=== PATIENT | female | born 1945 | race Caucasian/White ===

== ENCOUNTER 2016-12-15 08:23 | Emergency (ER) | payer OTHER ==
[2016-12-15] MEDS ORDERED: Sodium Chloride 0.9% 1,000 ML IV ONE ×2 (09:01→10:22)
[2016-12-15] MEDS ORDERED: Sodium Chloride 0.9% 1,000 ML ONE ×3 (09:44→13:03)
--- NOTE | 2016-12-15 09:51 | CT ---
PROCEDURE: CT HEAD WITHOUT CONTRAST. HISTORY: left arm tremor, r/o mass COMPARISON: None available. TECHNIQUE: Axial computed tomography images were obtained through the head/brain without intravenous contrast. Radiation dose: Total exam DLP = 1680.54 mGy-cm. This CT exam was performed using one or more of the following dose reduction techniques: Automated exposure control, adjustment of the mA and/or kV according to patient size, and/or use of iterative reconstruction technique. FINDINGS: HEMORRHAGE: No intracranial hemorrhage. BRAIN: Diffuse expansion of the ventriculosulcal and cisternal spaces is appreciated with white matter lucency compatible with diffuse cerebral atrophy and chronic microangiopathy. No mass-effect is identified. There is no suspicious extra-axial collection evident. No cortical edema. Probable empty sella. VENTRICLES: Unremarkable. No hydrocephalus. CALVARIUM: Unremarkable. PARANASAL SINUSES: Unremarkable as visualized. No significant inflammatory changes. MASTOID AIR CELLS: Unremarkable as visualized. No inflammatory changes. OTHER FINDINGS: None. IMPRESSION: Age related neuro degenerative changes are identified without acute intracranial findings as discussed above. Follow up CT or MRI are available if clinically warranted.
[2016-12-15 09:57] LABS: BASO % 0.8 % (0.0-2.0); EOS # 0.1 K/uL (0.0-0.7); EOS % 1.1 % (0.0-4.0); HEMATOCRIT 39.4 % (34.0-47.0); LYMPH # 0.8 K/uL (1.0-4.3); LYMPH % 17.7 % (20.0-40.0); MEAN CELL VOLUME 80.8 fL (81.0-99.0); MEAN CORPUSCULAR HEMOGLOBIN 26.9 pg (27.0-31.0); MEAN CORPUSCULAR HGB CONC 33.3 g/dL (33.0-37.0); MEAN PLATELET VOLUME 10.2 fL (7.2-11.7); MONO # 0.3 K/uL (0.0-0.8); MONO % 7.2 % (0.0-10.0); NRBC % 0.1 % (0.0-2.0); RED CELL DISTRIBUTION WIDTH 14.2 % (11.5-14.5); WHITE BLOOD COUNT 4.8 K/uL (4.8-10.8)
[2016-12-15 10:04] LABS: CHLORIDE 89 mmol/L (98-107)
[2016-12-15 10:05] LABS: POTASSIUM 4.9 mmol/L (3.6-5.2); SODIUM 124 mmol/L (132-148)
[2016-12-15 10:07] LABS: ALB/GLOB RATIO 1.4 (1.0-2.1); ALKALINE PHOSPHATASE 199 U/L (38-126); AST/SGOT 26 U/L (14-36); BLOOD UREA NITROGEN 39 mg/dL (7-17); CARBON DIOXIDE 20 mmol/L (22-30); GFR AFRICAN-AMERICAN 41; TOTAL PROTEIN 7.1 g/dL (6.3-8.3)
[2016-12-15 10:08] LABS: ALT/SGPT 36 U/L (9-52); CALCIUM 8.9 mg/dl (8.6-10.4)
[2016-12-15 10:20] LABS: GLUCOSE,RANDOM 759 mg/dL (65-105)
[2016-12-15] MEDS ORDERED: (Novolin R) Insulin Human Regular 100 units/ml vial IV STA (10:22)
--- NOTE | 2016-12-15 10:27 | C.PDOC ---
History Of Present Illness Patient presents to ED c/o left arm/hand pain and trembling x 2 days. Patient ( via family translating) admits to 1 prior episode of current symptoms approx 1 year ago, states her blood sugar was high and afterwards symptoms resolved. She denies falls/injuries, chest pain, SOB, cough, fever, sensory changes, extremity weakness, headache, dizziness. PMhx of DM, HTN, and patient has no PMD in the [place], only in [place]. Time Seen by Provider: 12/15/16 08:25 Chief Complaint (Nursing): Upper Extremity Problem/Injury History Per: Patient, Family History/Exam Limitations: language barrier Onset/Duration Of Symptoms: Days (2) Current Symptoms Are (Timing): Still Present Quality: "Pain" Severity: Mild Past Medical History Reviewed: Historical Data, Nursing Documentation, Vital Signs Vital Signs: Last Vital Signs Temp 97.6 F 12/15/16 08:32 Pulse 102 H 12/15/16 08:32 Resp 20 12/15/16 08:32 BP 137/83 12/15/16 08:32 Pulse Ox 97 12/15/16 10:29 - Medical History PMH: Diabetes, HTN Family History: States: Unknown Family Hx - Social History Hx Alcohol Use: No Hx Substance Use: No - Immunization History Hx Tetanus Toxoid Vaccination: No Hx Influenza Vaccination: No Hx Pneumococcal Vaccination: No Review Of Systems Except As Marked, All Systems Reviewed And Found Negative. Constitutional: Negative for: Fever, Chills Cardiovascular: Negative for: Chest Pain, Palpitations Respiratory: Negative for: Cough, Shortness of Breath Gastrointestinal: Negative for: Nausea, Vomiting, Abdominal Pain Musculoskeletal: Positive for: Arm Pain (left arm/hand pain and tremors) Neurological: Negative for: Weakness, Numbness, Incoordination, Confusion, Altered Mental Status, Headache, Dizziness Physical Exam - Physical Exam Appears: Well, Non-toxic, No Acute Distress Head: Atraumatic, Normacephalic Eye(s): bilateral: Normal Inspection, PERRL, EOMI Oral Mucosa: Dry Cardiovascular: Rhythm Regular (mildly tachycardic) Respiratory: Normal Breath Sounds, No Rales, No Rhonchi, No Wheezing Gastrointestinal/Abdominal: Normal Exam, Bowel Sounds, Soft, No Tenderness Extremity: Normal ROM, Tenderness (mild diffuse TTP at left shoulder and arm without swelling/deformity), No Pedal Edema, Capillary Refill (< 2 sec all digits ), No Swelling Extremity: Bilateral: Atraumatic, Normal Color And Temperature Neurological/Psych: Oriented x3, Other (intermittent left arm tremors/shaking) ED Course And Treatment - Laboratory Results Result Diagrams: 12/15/16 09:51 12/15/16 11:20 O2 Sat by Pulse Oximetry: 97 (RA) Pulse Ox Interpretation: Normal Progress Note: CT head, accucheck ordered and reviewed. Accucheck >500. Blood work ordered and reviewed. Reevaluation Time: 14:00 Reassessment Condition: Improved Disposition Counseled Patient/Family Regarding: Studies Performed, Diagnosis, Need For Followup - Disposition Referrals: [facility] [Outside] Disposition: HOME/ ROUTINE Disposition Time: 14:05 Condition: STABLE Additional Instructions: FOLLOW UP IN THE MEDICAL CLINIC IN 1-2 DAYS DRINK PLENTY OF WATER RETURN TO EMERGENCY ROOM IF YOU HAVE ANY CONCERNING SYMPTOMS Instructions: Diabetic Hyperglycemia (ED) Forms: [employer] (Iranian) Print Language: SAMMARINESE - Clinical Impression Clinical Impression: Tremor of left hand, Hyperglycemia
[2016-12-15] MEDS ORDERED: (Novolin R) Insulin Human Regular 100 units/ml vial ONE ×2 (10:44→12:21)
[2016-12-15 11:37] LABS: POTASSIUM 5.2 mmol/L (3.6-5.2)
[2016-12-15 11:41] LABS: CALCIUM 7.9 mg/dl (8.6-10.4)
[2016-12-15] MEDS ORDERED: (Novolin R) Insulin Human Regular 100 units/ml vial IV ONE (12:09)
[2016-12-15] MEDS ORDERED: Sodium Chloride 0.9% 500 ML IV ONE (12:47)
[2016-12-15 14:02] VITALS: BP 137/72; PULSE 87; RESP 18; TEMP 98.4
[2016-12-15 14:03] VITALS: O2SAT 97
== END 2016-12-15 14:10 | disposition home or self-care (01) ==
LOC: C.ER 08:23
DX: E11.65 Type 2 diabetes mellitus with hyperglycemia (principal); R25.1 Tremor, unspecified; I10 Essential (primary) hypertension
CPT/HCPCS: 70450; 80048; 80053; 82009; 82948; 85025; 96361; 96374; 96375; 99284; J7040

== ENCOUNTER 2016-12-16 09:27 | Emergency (ER) | payer MEDICAID, MEDICARE, OTHER ==
[2016-12-16 09:49] VITALS: TEMP 98.2
[2016-12-16] MEDS ORDERED: Sodium Chloride 0.9% 1,000 ML IV ONE (10:22)
--- NOTE | 2016-12-16 10:22 | C.PDOC ---
History Of Present Illness 71-YEAR-OLD FEMALE, PRESENTS TO THE EMERGENCY DEPARTMENT WITH COMPLAINTS OF PERSISTENT LUE INVOLUNTARY MOVEMENTS X 1 YEAR. PATIENT WAS SEEN LAST YEAR AND FOR SAME, BUT NOT ESTABLISHED WITH A PMD YET. COMPLIANT W INSULIN. 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 NO OTHER ASSOC SX EXAM NAD NONTOXIC HEENT NEG NEURO INTERMIT LUE TONIC CLONIC MOVEMENT, INTENTION TREMOR? MOTOR 5/5 B/L UE/ LE. UNABLE TO TANDEM WALK. +HEEL GANT B/L WO DIFF. UNABLE TO FINGER NOSE LUE DUE TO TREMOR. REMAINDER NEG Time Seen by Provider: 12/16/16 09:55 Chief Complaint (Nursing): Weakness/Neurological Deficit History Per: Patient History/Exam Limitations: no limitations Past Medical History Reviewed: Historical Data, Nursing Documentation, Vital Signs Vital Signs: Last Vital Signs Temp 98.2 F 12/16/16 09:45 Pulse 60 12/16/16 12:08 Resp 20 12/16/16 12:08 BP 143/63 12/16/16 12:08 Pulse Ox 99 12/16/16 12:45 - Medical History PMH: Diabetes, HTN, Hypercholesterolemia Family History: States: No Known Family Hx - Social History Hx Alcohol Use: No Hx Substance Use: No - Immunization History Hx Tetanus Toxoid Vaccination: No Hx Influenza Vaccination: No Hx Pneumococcal Vaccination: No Review Of Systems Except As Marked, All Systems Reviewed And Found Negative. Constitutional: Negative for: Fever Cardiovascular: Negative for: Chest Pain, Palpitations Respiratory: Negative for: Shortness of Breath Gastrointestinal: Negative for: Vomiting Neurological: Positive for: Other (involuntary LUE movements). Negative for: Weakness, Numbness Physical Exam - Physical Exam Appears: Non-toxic, No Acute Distress Skin: Warm, Dry, No Rash Head: Atraumatic, Normacephalic Eye(s): bilateral: Normal Inspection, PERRL Nose: Normal Oral Mucosa: Moist Lips: Normal Appearing Neck: Normal ROM Cardiovascular: Rhythm Regular, No Murmur Respiratory: Normal Breath Sounds, No Accessory Muscle Use Extremity: Normal ROM Neurological/Psych: Other ( INTERMIT LUE TONIC CLONIC MOVEMENT, INTENTION TREMOR ? MOTOR 5/5 B/L UE/LE. UNABLE TO TANDEM WALK. +HEEL GANT B/L WO DIFF. UNABLE TO FINGER NOSE LUE DUE TO TREMOR. ) ED Course And Treatment - Laboratory Results Result Diagrams: 12/16/16 10:27 12/16/16 10:27 ECG: Interpreted By Me, Viewed By Me ECG Rhythm: Sinus Rhythm ECG Interpretation: No Acute Changes Rate From EC O2 Sat by Pulse Oximetry: 99 Pulse Ox Interpretation: Normal Progress - Re-Evaluation Re-evaluation Note: 12/16/16 12:41 EXAM UNCH. ADVISED NEED FOR PMD EVAL, NEURO EVAM - Data Reviewed Data Reviewed: Lab, Diagnostic imaging, EKG, Old records - Continuity of Care Discussed patient case with:: Patient, Family-HIPPA compliant Disposition Counseled Patient/Family Regarding: Studies Performed, Diagnosis, Need For Followup - Disposition Referrals: [facility] [Outside] [facility] [Outside] Disposition: HOME/ ROUTINE Disposition Time: 12:42 Condition: GOOD Instructions: Diabetic Hyperglycemia (ED), Stroke (GEN) Forms: [employer] (Italian) - Clinical Impression Clinical Impression: Uncontrolled diabetes mellitus, Cerebral infarction, chronic - Scribe Statement The provider has reviewed the documentation as recorded by the Scribe (Sabino Richardson) All medical record entries made by the Scribe were at my direction and personally dictated by me. I have reviewed the chart and agree that the record accurately reflects my personal performance of the history, physical exam, medical decision making, and the department course for this patient. I have also personally directed, reviewed, and agree with the discharge instructions and disposition.
[2016-12-16 10:31] LABS: EOS # 0.1 K/uL (0.0-0.7); EOS % 1.8 % (0.0-4.0); HEMATOCRIT 38.7 % (34.0-47.0); LYMPH # 0.9 K/uL (1.0-4.3); LYMPH % 20.4 % (20.0-40.0); MEAN CELL VOLUME 81.1 fL (81.0-99.0); MEAN CORPUSCULAR HEMOGLOBIN 26.7 pg (27.0-31.0); MEAN CORPUSCULAR HGB CONC 32.9 g/dL (33.0-37.0); MEAN PLATELET VOLUME 9.8 fL (7.2-11.7); MONO # 0.3 K/uL (0.0-0.8); MONO % 6.8 % (0.0-10.0); NRBC % 0.1 % (0.0-2.0); WHITE BLOOD COUNT 4.4 K/uL (4.8-10.8)
[2016-12-16 10:37] LABS: RBC URINE 10 /hpf (0-3); URINE BACTERIA RARE (<OCC); URINE BILIRUBIN NEGATIVE (NEGATIVE); URINE BLOOD 1+ (NEGATIVE); URINE COLOR Colorless (YELLOW); URINE GLUCOSE (UA) 3+ mg/dL (Normal); URINE KETONE TRACE mg/dL (NEGATIVE); URINE LEUKOCYTE ESTERASE 3+ Leu/uL (Negative); URINE PROTEIN NEGATIVE (NEGATIVE); URINE UROBILINOGEN NORMAL mg/dL (0.2-1.0); WBC URINE 88 /hpf (0-5)
[2016-12-16 10:40] LABS: CHLORIDE 96 mmol/L (98-107); POTASSIUM 4.7 mmol/L (3.6-5.2); SODIUM 129 mmol/L (132-148)
[2016-12-16 10:42] LABS: GFR AFRICAN-AMERICAN 49
[2016-12-16] MEDS ORDERED: Sodium Chloride 0.9% 1,000 ML ONE (10:42)
[2016-12-16 10:43] LABS: ALB/GLOB RATIO 1.1 (1.0-2.1); ALKALINE PHOSPHATASE 171 U/L (38-126); ALT/SGPT 41 U/L (9-52); AST/SGOT 28 U/L (14-36); BILIRUBIN,TOTAL 0.7 mg/dL (0.2-1.3); BLOOD UREA NITROGEN 24 mg/dL (7-17); CALCIUM 8.8 mg/dl (8.6-10.4); CARBON DIOXIDE 19 mmol/L (22-30); TOTAL PROTEIN 7.8 g/dL (6.3-8.3)
[2016-12-16 10:45] LABS: VENOUS BLOOD GAS BASE EXCESS -4.1 mmol/L (0.0-2.0); VENOUS BLOOD GAS PCO2 41 mmHg (40-60); VENOUS BLOOD PH 7.33 (7.32-7.43)
[2016-12-16 11:00] LABS: GLUCOSE,RANDOM 664 mg/dL (65-105)
--- NOTE | 2016-12-16 11:16 | RAD ---
PROCEDURE: CHEST RADIOGRAPH, 1 VIEW HISTORY: Diabetic COMPARISON: 12/20/2015. FINDINGS: LUNGS: The lungs are clear. There are fibrotic changes in the lower lobes. PLEURA: No pneumothorax or pleural fluid seen. CARDIOVASCULAR: Normal. OSSEOUS STRUCTURES: No significant abnormalities. VISUALIZED UPPER ABDOMEN: Normal. OTHER FINDINGS: None. IMPRESSION: No active pulmonary disease.
[2016-12-16] MEDS ORDERED: (Novolin R) Insulin Human Regular 100 units/ml vial IV STA (11:38)
[2016-12-16] MEDS ORDERED: (Novolin R) Insulin Human Regular 100 units/ml vial ONE (12:04)
[2016-12-16 12:09] VITALS: BP 143/63; PULSE 60; RESP 20
[2016-12-16 12:42] VITALS: O2SAT 99
--- NOTE | 2016-12-18 12:17 | CT ---
PROCEDURE: CT HEAD WITHOUT CONTRAST. HISTORY: LUE INVOL TREMOR, GAIT DISTURBANCE COMPARISON: 12/15/2016. TECHNIQUE: Axial computed tomography images were obtained through the head/brain without intravenous contrast. Radiation dose: Total exam DLP = 630.20 mGy-cm. This CT exam was performed using one or more of the following dose reduction techniques: Automated exposure control, adjustment of the mA and/or kV according to patient size, and/or use of iterative reconstruction technique. FINDINGS: HEMORRHAGE: No intracranial hemorrhage. BRAIN: Stiles-white matter differentiation is preserved. There is no mass, mass effect or abnormal extra-axial fluid collection. There is asymmetric low attenuation in the right brachium pontis and superior cerebellar hemisphere. There are mild chronic microangiopathic changes. VENTRICLES: There is moderate age-related global parenchymal volume loss and proportionate enlargement of the ventricles and cortical sulci. The skull base and calvarium are normal. PARANASAL SINUSES: Predominantly clear. MASTOID AIR CELLS: Predominantly clear. OTHER FINDINGS: None. IMPRESSION: Asymmetric low attenuation in the right brachium pontis and superior cerebellar hemisphere could represent age indeterminate infarction. MRI of the brain without intravenous contrast is recommended for further evaluation. Mild chronic microangiopathic changes and mild age-related global parenchymal volume loss.
--- NOTE | 2016-12-18 13:58 | CARD ---
APPROVED REPORT EKG Measurement Heart [id number] <Conclusion> Normal sinus rhythm Normal ECG
== END 2016-12-16 13:18 | disposition home or self-care (01) ==
LOC: C.ER 09:27
DX: E11.65 Type 2 diabetes mellitus with hyperglycemia (principal); Z79.4 Long term (current) use of insulin; Z86.73 Personal history of transient ischemic attack (TIA), and cerebral infarction without residual deficits
CPT/HCPCS: 70450; 71010; 80053; 81001; 82009; 82803; 82948; 85025; 93005; 99285; J7040